=== PATIENT | female | born 1990 | race Caucasian/White ===

== ENCOUNTER 2017-01-16 21:57 | Emergency (ER) | payer OTHER ==
[~2017-01-16] VITALS: Ht 157.5 cm; Wt 79.4 kg
--- NOTE | 2017-01-16 22:25 | PHYS DOC ---
Past Medical History Past Medical History: Anemia, Anxiety, Depression, Gallstones, GERD Past Surgical History: No Surgical History Additional Information: 'vape' Alcohol Use: Rarely Drug Use: None Adult General Chief Complaint Chief Complaint: ABDOMINAL PAIN HPI HPI This is a 26-year-old female who presents with right-sided flank pain that does radiate some under her right upper quadrant for the last several days with some nausea but no vomiting. Patient states she has history of gallstones but has not yet had her gallbladder removed. States she's had little to eat or drink today. She denies any dysuria or hematuria. She denies being . She has an Implanon device. She denies any trauma to her back or any other acute injury. She rates her pain an 8/10 on the pain scale. Review of Systems Review of Systems Constitutional: Denies fever or chills [] Eyes: Denies change in visual acuity, redness, or eye pain [] HENT: Denies nasal congestion or sore throat [] Respiratory: Denies cough or shortness of breath [] Cardiovascular: No additional information not addressed in HPI [] GI: Has abdominal pain, has nausea, denies vomiting, denies bloody stools or diarrhea [] : Denies dysuria or hematuria [] Musculoskeletal: Has back pain, denies joint pain [] Integument: Denies rash or skin lesions [] Neurologic: Denies headache, focal weakness or sensory changes [] Endocrine: Denies polyuria or polydipsia [] Current Medications Current Medications Current Medications Medications (Trade) Dose Ordered Sig/Sukumar Start Time Stop Time Status Last Admin Dose Admin Fentanyl Citrate (Fentanyl 2ml Vial) 50 mcg 1X ONCE 01/16/17 22:30 01/16/17 22:31 DC 01/16/17 22:37 50 MCG Ondansetron HCl 4 mg 4 mg 1X ONCE 01/16/17 22:30 01/16/17 22:31 DC 01/16/17 22:37 4 MG Sodium Chloride (Iv Sodium Chloride 0.9% 1000ml Bag) 1,000 ml @ 1,000 mls/hr 1X ONCE 01/16/17 22:30 01/16/17 23:29 DC 01/16/17 22:37 1,000 MLS/HR Allergies Allergies Allergies Coded Allergies Type Severity Reaction Last Updated Verified No Known Drug Allergies 01/10/15 No Physical Exam Physical Exam Constitutional: Well developed, well nourished, no acute distress, non-toxic appearance. [] HENT: Normocephalic, atraumatic, bilateral external ears normal, oropharynx moist, no oral exudates, nose normal. [] Eyes: PERRLA, EOMI, conjunctiva normal, no discharge. [] Neck: Normal range of motion, no tenderness, supple, no stridor. [] Cardiovascular:Heart rate regular rhythm, no murmur [] Lungs & Thorax: Bilateral breath sounds clear to auscultation [] Abdomen: Bowel sounds normal, soft, RUQ tenderness, no masses, no pulsatile masses. [] Skin: Warm, dry, no erythema, no rash. [] Back: No tenderness, right CVA tenderness. [] Extremities: No tenderness, no cyanosis, no clubbing, ROM intact, no edema. [] Neurologic: Alert and oriented X 3, normal motor function, normal sensory function, no focal deficits noted. [] Psychologic: Affect normal, judgement normal, mood normal. [] Current Patient Data Vital Signs Vital Signs Date Time Temp Pulse Resp B/P Pulse Ox O2 Delivery O2 Flow Rate FiO2 01/16/17 23:30 74 110/65 99 Room Air 01/16/17 22:37 18 01/16/17 22:00 98.1 98.1 Lab Values Laboratory Tests Test 01/16/17 21:27 01/16/17 22:17 01/16/17 22:24 POC Urine HCG, Qualitative Hcg negative (Negative) Urine Collection Type Unknown Urine Color Yellow Urine Clarity Cloudy Urine pH 7.0 Urine Specific [place] 1.010 Urine Protein Negativemg/dL (NEG-TRACE) Urine Glucose (UA) Negativemg/dL (NEG) Urine Ketones (Stick) Negativemg/dL (NEG) Urine Blood Negative (NEG) Urine Nitrite Negative (NEG) Urine Bilirubin Negative (NEG) Urine Urobilinogen Dipstick 0.2mg/dL (0.2 mg/dL) Urine Leukocyte Esterase Negative (NEG) Urine RBC Occ/HPF (0-2) Urine WBC Occ/HPF (0-4) Urine Squamous Epithelial Cells Few/LPF Urine Amorphous Sediment Present/HPF Urine Bacteria Few/HPF (0-FEW) Urine Mucus Slight/LPF White Blood Count 10.7x10^3/uL (4.0-11.0) Red Blood Count 5.20x10^6/uL (3.50-5.40) Hemoglobin 15.0g/dL (12.0-15.5) Hematocrit 44.3% (36.0-47.0) Mean Corpuscular Volume 85fL (79-100) Mean Corpuscular Hemoglobin 29pg (25-35) Mean Corpuscular Hemoglobin Concent 34g/dL (31-37) Red Cell Distribution Width 12.8% (11.5-14.5) Platelet Count 278x10^3/uL (140-400) Neutrophils (%) (Auto) 65% (31-73) Lymphocytes (%) (Auto) 27% (24-48) Monocytes (%) (Auto) 7% (0-9) Eosinophils (%) (Auto) 1% (0-3) Basophils (%) (Auto) 0% (0-3) Neutrophils # (Auto) 6.9x10^3uL (1.8-7.7) Lymphocytes # (Auto) 2.9x10^3/uL (1.0-4.8) Monocytes # (Auto) 0.7x10^3/uL (0.0-1.1) Eosinophils # (Auto) 0.1x10^3/uL (0.0-0.7) Basophils # (Auto) 0.0x10^3/uL (0.0-0.2) Sodium Level 142mmol/L (136-145) Potassium Level 3.6mmol/L (3.5-5.1) Chloride Level 103mmol/L (98-107) Carbon Dioxide Level 29mmol/L (21-32) Anion Gap 10 (6-14) Blood Urea Nitrogen 15mg/dL (7-20) Creatinine 0.7mg/dL (0.6-1.0) Estimated GFR (Cockcroft-Gault) 102.0 BUN/Creatinine Ratio 21 (6-20) H Glucose Level 108mg/dL (70-99) H Calcium Level 10.0mg/dL (8.5-10.1) Total Bilirubin 0.9mg/dL (0.2-1.0) Aspartate Amino Transferase (AST) 17U/L (15-37) Alanine Aminotransferase (ALT) 26U/L (14-59) Alkaline Phosphatase 37U/L (46-116) L Total Protein 8.8g/dL (6.4-8.2) H Albumin 4.1g/dL (3.4-5.0) Albumin/Globulin Ratio 0.9 (1.0-1.7) L Lipase 247U/L (73-393) Laboratory Tests 01/16/17 22:24 Laboratory Tests 01/16/17 22:24 EKG EKG [] Radiology/Procedures Radiology/Procedures Abdominal ultrasound demonstrated the following: Visualized pancreas is unremarkable. Visualized aorta and IVC demonstrate normal caliber. Liver is homogeneous and mildly increased in echogenicity. No focal hepatic masses are identified. Right hepatic lobe measures 14.8 centimeters in length. Gallbladder is contracted. Gallbladder is otherwise unremarkable. Common bile duct has normal caliber at 2 millimeters. Right kidney measures 11.4 centimeters in length. Right kidney is without evidence of obstruction or stone. Course & Med Decision Making Course & Med Decision Making Pertinent Labs and Imaging studies reviewed. (See chart for details) 26-year-old female is having significant right flank pain that does radiate some right upper quadrant had an ultrasound of her gallbladder and continue does not reveal any acute abnormalities. Her bloodwork is also nonrevealing. Her urinalysis was negative for any sign of infection. I will not be treating her today with any antibiotic therapy because her urinalysis is normal. I'll be having her follow closely with primary care doctor and will write her for a course of pain medication and nausea medication as well. She'll follow closely in the next several days resolution of symptoms with strict instruction to return if she has any worsening pain or develops any new symptoms such as fever or pain with urination. Dragon Disclaimer Dragon Disclaimer This electronic medical record was generated, in whole or in part, using a voice recognition dictation system. Departure Departure Impression: Primary Impression: Right flank pain Additional Impression: RUQ pain Disposition: 01 HOME, SELF-CARE Admitting Physician: Other Condition: STABLE Referrals: NO PCP (PCP) Patient Instructions: Abdominal Pain (Nonspecific) Additional Instructions: Please take your pain medication as prescribed. Return to the ER if you develop any worsening of your symptoms. Follow up with your primary doctor in the next 2 -3 days for your symptoms. Scripts Ondansetron Hcl (Zofran)4 Mg Tablet4 Mg PO BID PRN NAUSEA/VOMITING #10 TAB Prov:CHAS NEW DO 01/16/17 Hydrocodone/Apap 5-325 ([place] 5-325 Tablet)1 Each Tablet1 Tab PO PRN Q6HRS PRN PAIN #10 TAB Prov:CHAS NEW DO 01/16/17 Problem Qualifiers CHAS NEW DO Jan 16, 2017 22:25
[2017-01-16] MEDS ORDERED: FENTANYL PF 100 MCG/2 ML VIAL. IV ONE (22:30)
[2017-01-16] MEDS ORDERED: ONDANSETRON PF 4 MG/2 ML VIAL. IV ONE (22:30)
[2017-01-16] MEDS ORDERED: IV NORMAL SALINE 1000ML BAG 1,000 ML IV ONE (22:30)
[2017-01-16 22:32] LABS: BILIRUBIN,URINE NEGATIVE (NEG); GLUCOSE,URINE NEGATIVE (NEG); NITRITE,URINE NEGATIVE (NEG); PROTEIN,URINE NEGATIVE (NEG-TRACE); UROBILINOGEN,URINE 0.2 mg/dL (0.2 mg/dL)
[2017-01-16 22:34] LABS: BASO % 0 % (0-3); EOS % 1 % (0-3); HEMATOCRIT 44.3 % (36.0-47.0); LYMPH # 2.9 x10^3/uL (1.0-4.8); LYMPH % 27 % (24-48); MEAN CORPUSCULAR HEMOGLOBIN 29 pg (25-35); MEAN CORPUSCULAR HGB CONC 34 g/dL (31-37); MEAN CORPUSCULAR VOLUME 85 fL (79-100); MONO % 7 % (0-9); NEUT % 65 % (31-73); PLATELET COUNT 278 x10^3/uL (140-400); RED CELL DISTRIBUTION WIDTH 12.8 % (11.5-14.5); WHITE BLOOD COUNT 10.7 x10^3/uL (4.0-11.0)
[2017-01-16 22:41] LABS: CREATININE 0.7 mg/dL (0.6-1.0); POTASSIUM 3.6 mmol/L (3.5-5.1)
[2017-01-16 22:42] LABS: BACTERIA,URINE FEW /HPF (0-FEW); RBC,URINE OCC /HPF (0-2); SQUAMOUS EPITHELIAL CELL,UR FEW /LPF; WBC,URINE OCC /HPF (0-4)
[2017-01-16 22:47] LABS: ALBUMIN 4.1 g/dL (3.4-5.0); ALBUMIN/GLOBULIN RATIO 0.9 (1.0-1.7); TOTAL BILIRUBIN 0.9 mg/dL (0.2-1.0); TOTAL PROTEIN 8.8 g/dL (6.4-8.2)
--- NOTE | 2017-01-16 23:05 | RAD ---
PROCEDURE Right upper quadrant abdominal ultrasound. HISTORY Flank and right upper quadrant pain. Patient ate at 1800 hours. TECHNIQUE Transabdominal imaging was performed. COMPARISON None. FINDINGS Visualized pancreas is unremarkable. Visualized aorta and IVC demonstrate normal caliber. Liver is homogeneous and mildly increased in echogenicity. No focal hepatic masses are identified. Right hepatic lobe measures 14.8 centimeters in length. Gallbladder is contracted. Gallbladder is otherwise unremarkable. Common bile duct has normal caliber at 2 millimeters. Right kidney measures 11.4 centimeters in length. Right kidney is without evidence of obstruction or stone. IMPRESSION 1. Contracted gallbladder, thought due to lack of NPO status. No evidence of cholelithiasis or cholecystitis. 2. Echogenic liver, compatible with fatty liver disease. Electronically signed by: Matty Omalley MD (Jan 16, 2017 23:04:02)
[2017-01-16 23:30] VITALS: BP 110/65
[2017-01-16] MEDS ORDERED: HYDR-971 PO (23:33)
[2017-01-16] MEDS ORDERED: ONDA4TAB7 PO (23:33)
== END 2017-01-16 23:45 | disposition home or self-care (01) ==
LOC: ER 21:57
DX: R10.11 Right upper quadrant pain (principal); K21.9 Gastro-esophageal reflux disease without esophagitis
CPT/HCPCS: 36415; 76705; 80053; 81001; 81025; 83690; 85027; 96361; 96374; 96375; 99285; J2405; J3010; J7030

== ENCOUNTER 2017-01-19 17:00 | Emergency (ER) | payer OTHER ==
[~2017-01-19] VITALS: Ht 157.5 cm; Wt 79.4 kg
[~2017-01-19 17:00] MED LIST: HYDR-971 PO; ONDA4TAB7 PO
[2017-01-19 18:50] LABS: BILIRUBIN,URINE NEGATIVE (NEG); GLUCOSE,URINE NEGATIVE (NEG); NITRITE,URINE NEGATIVE (NEG); PROTEIN,URINE NEGATIVE (NEG-TRACE)
[2017-01-19 19:00] LABS: BACTERIA,URINE FEW /HPF (0-FEW); RBC,URINE 0 /HPF (0-2); SQUAMOUS EPITHELIAL CELL,UR MOD /LPF; WBC,URINE OCC /HPF (0-4)
--- NOTE | 2017-01-19 19:51 | PHYS DOC ---
Past Medical History Past Medical History: Anemia, Anxiety, Depression, Gallstones, GERD Past Surgical History: No Surgical History Alcohol Use: Rarely Drug Use: None Adult General Chief Complaint Chief Complaint: ABDOMINAL PAIN HPI HPI Patient is a 26 year old female who presents with abdominal pain. Patient reports for the last week she has been having right upper quadrant/right flank pain that is worse with eating. She says that little better while lying down. She denies any fever or dysuria. She was seen in this ED previously for the same ; she is told it is likely her gallbladder, and was discharged with prescription for pain and nausea medication. She does have an appointment with her PCP but this is not until Sunday. She reports she has been having significant pain and didn't feel like she can wait. Review of Systems Review of Systems Constitutional: Denies fever or chills Eyes: Denies change in visual acuity or eye pain HENT: Denies nasal congestion or sore throat Respiratory: Denies cough or shortness of breath Cardiovascular: Denies chest pain GI: RUQ abdominal pain, nausea. Denies vomiting, bloody stools or diarrhea : Denies dysuria or hematuria Musculoskeletal: R flank pain Integument: Denies rash or skin lesions Neurologic: Denies headache, focal weakness or sensory changes Current Medications Current Medications Current Medications Medications (Trade) Dose Ordered Sig/Sukumar Start Time Stop Time Status Last Admin Dose Admin Famotidine (Pepcid) 20 mg 1X ONCE 01/19/17 22:00 01/19/17 22:01 DC 01/19/17 21:58 20 MG Morphine Sulfate 4 mg 1X ONCE 01/19/17 20:00 01/19/17 20:01 DC 01/19/17 20:13 4 MG Ondansetron HCl (Zofran) 4 mg 1X ONCE 01/19/17 22:00 01/19/17 22:01 DC 01/19/17 21:58 4 MG Sodium Chloride (Iv Sodium Chloride 0.9% 1000ml Bag) 1,000 ml @ 1,000 mls/hr Q1H 01/19/17 20:00 01/19/17 20:59 DC 01/19/17 20:13 1,000 MLS/HR Allergies Allergies Allergies Coded Allergies Type Severity Reaction Last Updated Verified No Known Drug Allergies 01/10/15 No Physical Exam Physical Exam Constitutional: Well developed, well nourished, no acute distress, non-toxic appearance HENT: Normocephalic, atraumatic, bilateral external ears normal Eyes: EOMI, conjunctiva normal, no discharge Neck: Normal range of motion, no stridor Cardiovascular: Heart rate normal, regular rhythm, no murmur Lungs & Thorax: Bilateral breath sounds clear to auscultation Abdomen: Bowel sounds normal, soft, non-distended, RUQ TTP without guarding or rebound; negative Weber's sign Skin: Warm, dry, no erythema, no rash Back: Mild R CVA tenderness Extremities: No obvious deformity, no edema Neurologic: Alert and oriented X 3, no gross deficits noted Current Patient Data Vital Signs Vital Signs Date Time Temp Pulse Resp B/P Pulse Ox O2 Delivery O2 Flow Rate FiO2 01/19/17 22:00 72 24 100 01/19/17 21:30 99/72 Room Air 01/19/17 17:10 98.8 98.8 Lab Values Laboratory Tests Test 01/19/17 17:02 01/19/17 18:00 01/19/17 19:56 POC Urine HCG, Qualitative Hcg negative (Negative) Urine Collection Type Unknown Urine Color Yellow Urine Clarity Cloudy Urine pH 7.0 Urine Specific [place] 1.020 Urine Protein Negativemg/dL (NEG-TRACE) Urine Glucose (UA) Negativemg/dL (NEG) Urine Ketones (Stick) Negativemg/dL (NEG) Urine Blood Negative (NEG) Urine Nitrite Negative (NEG) Urine Bilirubin Negative (NEG) Urine Urobilinogen Dipstick 1.0mg/dL (0.2 mg/dL) Urine Leukocyte Esterase Negative (NEG) Urine RBC 0/HPF (0-2) Urine WBC Occ/HPF (0-4) Urine Squamous Epithelial Cells Mod/LPF Urine Bacteria Few/HPF (0-FEW) Urine Mucus Marked/LPF Urine Test Negative (NEG) White Blood Count 8.0x10^3/uL (4.0-11.0) Red Blood Count 4.81x10^6/uL (3.50-5.40) Hemoglobin 14.0g/dL (12.0-15.5) Hematocrit 41.3% (36.0-47.0) Mean Corpuscular Volume 86fL (79-100) Mean Corpuscular Hemoglobin 29pg (25-35) Mean Corpuscular Hemoglobin Concent 34g/dL (31-37) Red Cell Distribution Width 12.8% (11.5-14.5) Platelet Count 261x10^3/uL (140-400) Neutrophils (%) (Auto) 58% (31-73) Lymphocytes (%) (Auto) 35% (24-48) Monocytes (%) (Auto) 6% (0-9) Eosinophils (%) (Auto) 1% (0-3) Basophils (%) (Auto) 0% (0-3) Neutrophils # (Auto) 4.6x10^3uL (1.8-7.7) Lymphocytes # (Auto) 2.8x10^3/uL (1.0-4.8) Monocytes # (Auto) 0.5x10^3/uL (0.0-1.1) Eosinophils # (Auto) 0.1x10^3/uL (0.0-0.7) Basophils # (Auto) 0.0x10^3/uL (0.0-0.2) Sodium Level 143mmol/L (136-145) Potassium Level 3.8mmol/L (3.5-5.1) Chloride Level 105mmol/L (98-107) Carbon Dioxide Level 28mmol/L (21-32) Anion Gap 10 (6-14) Blood Urea Nitrogen 18mg/dL (7-20) Creatinine 0.7mg/dL (0.6-1.0) Estimated GFR (Cockcroft-Gault) 102.0 BUN/Creatinine Ratio 26 (6-20) H Glucose Level 92mg/dL (70-99) Calcium Level 9.2mg/dL (8.5-10.1) Total Bilirubin 0.8mg/dL (0.2-1.0) Aspartate Amino Transferase (AST) 19U/L (15-37) Alanine Aminotransferase (ALT) 23U/L (14-59) Alkaline Phosphatase 33U/L (46-116) L Total Protein 7.9g/dL (6.4-8.2) Albumin 3.8g/dL (3.4-5.0) Albumin/Globulin Ratio 0.9 (1.0-1.7) L Lipase 136U/L (73-393) Laboratory Tests 01/19/17 19:56 Laboratory Tests 01/19/17 19:56 EKG EKG [] Radiology/Procedures Radiology/Procedures RUQ US: IMPRESSION 1. Echogenic liver, compatible with fatty liver disease. 2. No evidence of gallbladder pathology. 3. Right renal cyst. Course & Med Decision Making Course & Med Decision Making Pertinent Labs and Imaging studies reviewed. (See chart for details) Patient is 26-year-old female who presents with right upper quadrant pain. Differential includes gallbladder disease, pancreatitis, PUD, kidney stone. Will obtain repeat right upper quadrant ultrasound since her gallbladder was contracted on the prior exam. Will also check labs, UA, urine . IV fluids, pain medication, nausea medication ordered for relief of symptoms. Imaging results as above; no evidence of gallbladder disease or kidney stone. Blood work unremarkable. UA negative for hematuria (which would be indicative of possible stone) or infection. Discussed results with patient, who is feeling better at this time. We will discharge with prescription for omeprazole, Carafate, instructions for follow-up with GI, return precautions. Patient states she has adequate pain and nausea medication at home from prior prescription. Dragon Disclaimer Dragon Disclaimer This electronic medical record was generated, in whole or in part, using a voice recognition dictation system. Departure Departure Impression: Primary Impression: RUQ pain Disposition: HOME, SELF-CARE Condition: IMPROVED Referrals: NO PCP (PCP) CHAS ROMERO MD Patient Instructions: Abdominal Pain Additional Instructions: Thank you for allowing us to provide care today in the Emergency Department. Take the provided medication as directed. Schedule a follow up appointment with your primary care doctor. Follow up with a heel buffer (GI specialist) using the provided contact information. Return promptly to the Emergency Department if you develop any new or concerning symptoms. Scripts Sucralfate (Carafate)1 Gm Tablet1 Tab PO QID #60 TAB Ref 1 Prov:HUMBERTO ANN MD 01/19/17 Omeprazole 20 Mg Tablet.dr20 Mg PO DAILY #30 TAB Prov:HUMBERTO ANN MD 01/19/17 HUMBERTO ANN MD Jan 19, 2017 19:51
[2017-01-19] MEDS ORDERED: IV NORMAL SALINE 1000ML BAG 1,000 ML IV SCH (20:00)
[2017-01-19] MEDS ORDERED: MORPHINE SULFATE 4 MG/ML DISP.SYRIN. IV ONE (20:00)
[2017-01-19] MEDS ORDERED: ONDANSETRON PF 4 MG/2 ML VIAL. IV ONE ×2 (20:00→22:00)
[2017-01-19 20:24] LABS: NEG OBC UR NEG; POS OBC UR POS
[2017-01-19 20:30] LABS: BASO % 0 % (0-3); EOS % 1 % (0-3); HEMATOCRIT 41.3 % (36.0-47.0); LYMPH # 2.8 x10^3/uL (1.0-4.8); LYMPH % 35 % (24-48); MEAN CORPUSCULAR HEMOGLOBIN 29 pg (25-35); MEAN CORPUSCULAR HGB CONC 34 g/dL (31-37); MEAN CORPUSCULAR VOLUME 86 fL (79-100); MONO % 6 % (0-9); NEUT % 58 % (31-73); PLATELET COUNT 261 x10^3/uL (140-400); RED BLOOD COUNT 4.81 x10^6/uL (3.50-5.40); RED CELL DISTRIBUTION WIDTH 12.8 % (11.5-14.5)
[2017-01-19 20:42] LABS: CALCIUM 9.2 mg/dL (8.5-10.1); CREATININE 0.7 mg/dL (0.6-1.0); POTASSIUM 3.8 mmol/L (3.5-5.1)
[2017-01-19 20:47] LABS: ALBUMIN 3.8 g/dL (3.4-5.0); ALBUMIN/GLOBULIN RATIO 0.9 (1.0-1.7); TOTAL BILIRUBIN 0.8 mg/dL (0.2-1.0); TOTAL PROTEIN 7.9 g/dL (6.4-8.2)
--- NOTE | 2017-01-19 21:01 | RAD ---
PROCEDURE Right upper quadrant abdominal ultrasound. HISTORY Intermittent right upper quadrant pain and nausea for 5 days. TECHNIQUE Transabdominal imaging was performed. COMPARISON Same examination January 16, 2017. FINDINGS Visualized pancreas is unremarkable. Visualized aorta and IVC demonstrate normal caliber. Liver is increased in echogenicity. No focal hepatic masses are identified. Right hepatic lobe measures 14.9 centimeters. Gallbladder is without stone or inflammation. Common bile duct has normal caliber at 4 millimeters. Right kidney measures 11.9 centimeters in length. Right kidney is without evidence of obstruction or stone. Right kidney demonstrates small cyst measuring 1.2 centimeters. IMPRESSION 1. Echogenic liver, compatible with fatty liver disease. 2. No evidence of gallbladder pathology. 3. Right renal cyst. Electronically signed by: Matty Omalley MD (Jan 19, 2017 21:00:23)
[2017-01-19 21:30] VITALS: BP 99/72
[2017-01-19] MEDS ORDERED: OMEP20TA PO (21:48)
[2017-01-19] MEDS ORDERED: SUCR1TAB29 PO (21:48)
[2017-01-19] MEDS ORDERED: FAMOTIDINE 20 MG/2 ML VIAL IVP ONE (22:00)
== END 2017-01-19 22:05 | disposition home or self-care (01) ==
LOC: ER 17:00
DX: R10.11 Right upper quadrant pain (principal); F41.9 Anxiety disorder, unspecified; F32.9 Major depressive disorder, single episode, unspecified; K21.9 Gastro-esophageal reflux disease without esophagitis
CPT/HCPCS: 36415; 76705; 80053; 81001; 81025; 83690; 84703; 85027; 96361; 96374; 96375; 96376; 99285; J2270; J2405; J7030; S0028

== ENCOUNTER 2017-07-04 11:56 | Emergency (ER) | payer OTHER ==
[~2017-07-04] VITALS: Ht 157.5 cm; Wt 74.8 kg
[~2017-07-04 11:56] MED LIST changes: +OMEP20TA8 PO; +SUCR1TAB35 PO
[2017-07-04 12:18] LABS: BILIRUBIN,URINE NEGATIVE (NEG); GLUCOSE,URINE NEGATIVE (NEG); NITRITE,URINE NEGATIVE (NEG); PH,URINE 5.5; PROTEIN,URINE NEGATIVE (NEG-TRACE); UROBILINOGEN,URINE 0.2 mg/dL (0.2 mg/dL)
--- NOTE | 2017-07-04 12:30 | PHYS DOC ---
Past Medical History Past Medical History: Anemia, Anxiety, Depression, Gallstones, GERD Additional Past Medical Histor: gastric ulcers, headaches Past Surgical History: No Surgical History Alcohol Use: Rarely Drug Use: None Adult General Chief Complaint Chief Complaint: ABDOMINAL PAIN HPI HPI Patient is a 27 year old female presents with complaints of abdominal pain for 2 days and also vaginal bleeding that has been going on for approximately 4 weeks. Patient denies any fevers, vomiting, diarrhea, rashes, trauma. Patient describes the abdominal pain is mild and generalized. Patient has a implant for anti-conception that is now 4 years old and the last time of the devices for 3 years. Review of Systems Review of Systems Constitutional: Denies fever or chills [] HENT: Denies nasal congestion or sore throat [] Respiratory: Denies cough or shortness of breath [] Cardiovascular: No chest pain GI: Yes abdominal pain. Denies Nausea, vomiting, bloody stools or diarrhea [] : Denies dysuria or hematuria. Yesterday vaginal bleeding, no to vaginal discharge Musculoskeletal: Denies back pain or joint pain [] Integument: Denies rash or skin lesions [] Neurologic: Denies headache, focal weakness or sensory changes [] Endocrine: Denies polyuria or polydipsia [] Allergies Allergies Allergies Coded Allergies Type Severity Reaction Last Updated Verified No Known Drug Allergies 01/10/15 No Physical Exam Physical Exam Constitutional: Well developed, well nourished, no acute distress, non-toxic appearance. [] HENT: Normocephalic, atraumatic, nose normal. [] Eyes: PERRLA, EOMI, conjunctiva normal, no discharge. [] Neck: Normal range of motion, no tenderness, supple, no stridor. [] Cardiovascular:Heart rate regular rhythm, no murmur [] Lungs & Thorax: Bilateral breath sounds clear to auscultation, no tachypnea Abdomen: Bowel sounds normal, soft, very mild tenderness in the upper abdomen without guarding or rebound,, no masses, no pulsatile masses. [] Skin: Warm, dry, no erythema, no rash. [] Back: No tenderness, no CVA tenderness. [] Extremities: No tenderness, no cyanosis, no clubbing, ROM intact, no edema. [] Neurologic: Alert and oriented X 3, normal motor function, no focal deficits noted. [] Psychologic: Affect normal, judgement normal, mood normal. [] Current Patient Data Vital Signs Vital Signs Date Time Temp Pulse Resp B/P (MAP) Pulse Ox O2 Delivery O2 Flow Rate FiO2 07/04/17 12:19 98.6 85 16 130/70 (90) 96 Room Air 98.6 Lab Values Laboratory Tests Test 07/04/17 11:17 07/04/17 12:05 07/04/17 12:32 POC Urine HCG, Qualitative Hcg negative (Negative) Urine Collection Type Unknown Urine Color Yellow Urine Clarity Clear Urine pH 5.5 Urine Specific [place] 1.025 Urine Protein Negative mg/dL (NEG-TRACE) Urine Glucose (UA) Negative mg/dL (NEG) Urine Ketones (Stick) Negative mg/dL (NEG) Urine Blood Large (NEG) Urine Nitrite Negative (NEG) Urine Bilirubin Negative (NEG) Urine Urobilinogen Dipstick 0.2 mg/dL (0.2 mg/dL) Urine Leukocyte Esterase Negative (NEG) Urine RBC >40 /HPF (0-2) Urine WBC 1-4 /HPF (0-4) Urine Squamous Epithelial Cells Mod /LPF Urine Bacteria Few /HPF (0-FEW) Urine Mucus Marked /LPF White Blood Count 7.8 x10^3/uL (4.0-11.0) Red Blood Count 4.85 x10^6/uL (3.50-5.40) Hemoglobin 14.4 g/dL (12.0-15.5) Hematocrit 41.7 % (36.0-47.0) Mean Corpuscular Volume 86 fL (79-100) Mean Corpuscular Hemoglobin 30 pg (25-35) Mean Corpuscular Hemoglobin Concent 35 g/dL (31-37) Red Cell Distribution Width 12.9 % (11.5-14.5) Platelet Count 245 x10^3/uL (140-400) Neutrophils (%) (Auto) 72 % (31-73) Lymphocytes (%) (Auto) 22 % (24-48) L Monocytes (%) (Auto) 6 % (0-9) Eosinophils (%) (Auto) 0 % (0-3) Basophils (%) (Auto) 1 % (0-3) Neutrophils # (Auto) 5.6 x10^3uL (1.8-7.7) Lymphocytes # (Auto) 1.7 x10^3/uL (1.0-4.8) Monocytes # (Auto) 0.4 x10^3/uL (0.0-1.1) Eosinophils # (Auto) 0.0 x10^3/uL (0.0-0.7) Basophils # (Auto) 0.0 x10^3/uL (0.0-0.2) Sodium Level 139 mmol/L (136-145) Potassium Level 3.8 mmol/L (3.5-5.1) Chloride Level 102 mmol/L (98-107) Carbon Dioxide Level 24 mmol/L (21-32) Anion Gap 13 (6-14) Blood Urea Nitrogen 14 mg/dL (7-20) Creatinine 0.6 mg/dL (0.6-1.0) Estimated GFR (Cockcroft-Gault) 120.8 BUN/Creatinine Ratio 23 (6-20) H Glucose Level 99 mg/dL (70-99) Calcium Level 9.4 mg/dL (8.5-10.1) Total Bilirubin 0.9 mg/dL (0.2-1.0) Aspartate Amino Transferase (AST) 17 U/L (15-37) Alanine Aminotransferase (ALT) 21 U/L (14-59) Alkaline Phosphatase 34 U/L (46-116) L Total Protein 8.2 g/dL (6.4-8.2) Albumin 4.3 g/dL (3.4-5.0) Albumin/Globulin Ratio 1.1 (1.0-1.7) Laboratory Tests 07/04/17 12:32 Laboratory Tests 07/04/17 12:32 EKG EKG [] Radiology/Procedures Radiology/Procedures [] Course & Med Decision Making Course & Med Decision Making Pertinent Labs and Imaging studies reviewed. (See chart for details) and discussed with patient. Patient in no distress, labs and results discussed with the patient progress to follow up as directed. I believed that there abnormal vaginal bleeding the patient is experiencing is secondary to her on the concept of device no longer producing any hormone. Patient is waiting to have an implant put in. [] Dragon Disclaimer Dragon Disclaimer This electronic medical record was generated, in whole or in part, using a voice recognition dictation system. Departure Departure Impression: Primary Impression: Abdominal pain Additional Impression: Dysfunctional uterine bleeding Disposition: HOME, SELF-CARE Referrals: NO PCP (PCP) you told us you have a pcp to follow up with, please do so in 1 day for recheck. Also discuss possible need for referral to [facility]. Patient Instructions: Abdominal Pain (Nonspecific), Uterine Bleeding, Dysfunctional Scripts Sucralfate (CARAFATE) 1 Gm/10 Ml Oral.susp 10 ML PO BID for 5 Days, #120 ML 1 Refill Prov: Alisia BLACK MD 07/04/17 Hyoscyamine Sulfate (LEVSIN) 0.125 Mg Tablet 1 TAB PO TID, #14 TAB 1 Refill Prov: Alisia BLACK MD 07/04/17 Problem Qualifiers Alisia BLACK MD Jul 04, 2017 12:30
[2017-07-04 12:31] LABS: RBC,URINE >40 /HPF (0-2)
[2017-07-04 12:32] LABS: BACTERIA,URINE FEW /HPF (0-FEW); SQUAMOUS EPITHELIAL CELL,UR MOD /LPF
[2017-07-04 12:41] LABS: BASO % 1 % (0-3); EOS % 0 % (0-3); HEMATOCRIT 41.7 % (36.0-47.0); HEMOGLOBIN 14.4 g/dL (12.0-15.5); LYMPH # 1.7 x10^3/uL (1.0-4.8); LYMPH % 22 % (24-48); MEAN CORPUSCULAR HEMOGLOBIN 30 pg (25-35); MEAN CORPUSCULAR HGB CONC 35 g/dL (31-37); MEAN CORPUSCULAR VOLUME 86 fL (79-100); MONO % 6 % (0-9); NEUT % 72 % (31-73); PLATELET COUNT 245 x10^3/uL (140-400); RED BLOOD COUNT 4.85 x10^6/uL (3.50-5.40); RED CELL DISTRIBUTION WIDTH 12.9 % (11.5-14.5); WHITE BLOOD COUNT 7.8 x10^3/uL (4.0-11.0)
[2017-07-04 12:50] LABS: CALCIUM 9.4 mg/dL (8.5-10.1); CREATININE 0.6 mg/dL (0.6-1.0); GFR 120.8; POTASSIUM 3.8 mmol/L (3.5-5.1)
[2017-07-04 12:56] LABS: ALBUMIN 4.3 g/dL (3.4-5.0); ALBUMIN/GLOBULIN RATIO 1.1 (1.0-1.7); TOTAL BILIRUBIN 0.9 mg/dL (0.2-1.0); TOTAL PROTEIN 8.2 g/dL (6.4-8.2)
[2017-07-04] MEDS ORDERED: SUCR1ORA5 PO (13:47)
[2017-07-04] MEDS ORDERED: HYOS0.1264 PO (13:47)
--- NOTE | 2017-07-04 13:58 | RAD ---
Exam performed: 2 views of the chest. Indication: chest pain Date of Service:07/04/2017 3:39 PM . Comparison : None available. Findings: PA and lateral radiographs of the chest reveal a normal cardiomediastinal contour. The lungs are clear. No pleural fluid is seen. The visualized osseous structures are unremarkable. Impression: Radiographically normal chest.
[2017-07-04 14:13] VITALS: BP 121/72
== END 2017-07-04 14:15 | disposition home or self-care (01) ==
LOC: ER 11:56
DX: R10.84 Generalized abdominal pain (principal); N93.8 Other specified abnormal uterine and vaginal bleeding; F32.9 Major depressive disorder, single episode, unspecified; F41.9 Anxiety disorder, unspecified; K21.9 Gastro-esophageal reflux disease without esophagitis; Z87.19 Personal history of other diseases of the digestive system
CPT/HCPCS: 36415; 71020; 80053; 81001; 81025; 85025; 99285-25

== ENCOUNTER 2019-09-28 20:31 | Emergency (ER) | payer SELFPAY ==
[~2019-09-28] VITALS: Ht 157.5 cm; Wt 75.3 kg
[~2019-09-28 20:31] MED LIST changes: +HYDR-3164 PO; -HYDR-971 PO; +HYOS0.1264 PO; +SUCR1ORA5 PO
[2019-09-28 20:50] VITALS: BP 139/76
--- NOTE | 2019-09-28 21:10 | PHYS DOC ---
Past Medical History Past Medical History: Abscess, Anemia, Anxiety, Depression, Gallstones, GERD, P.U.D. Additional Past Medical Histor: PTSD (CAMILLA VELAZQUEZ APRN) Past Surgical History: No Surgical History (CAMILLA VELAZQUEZ APRN) Alcohol Use: Rarely Drug Use: None (CAMILLA VELAZQUEZ APRN) Adult General Chief Complaint Chief Complaint: SKIN PROBLEM HPI HPI Patient is a 29 year old [female] who presents with [abscess to left buttock. Patient reports she has had this lesion for the past few days, reports he doesn't become increasingly more tender and painful. Reports he has felt warm. States she herself has not had a fever. States she did have some drainage from a couple days ago, has been trying different topical treatments including hydroperoxide, Neosporin, but has continued to have discomfort and swelling noted to the. States she initially thought was an ingrown hair, but has not been sure. Denies having any these in the past.] (CAMILLA VELAZQUEZ APRN) Review of Systems Review of Systems Constitutional: Denies fever or chills [] Respiratory: Denies cough or shortness of breath [] Cardiovascular: No additional information not addressed in HPI [] GI: Denies abdominal pain, nausea, vomiting, bloody stools or diarrhea [] : Denies dysuria or hematuria [] Musculoskeletal: Denies back pain or joint pain [] Integument: Denies rash reports skin lesion to right buttock[] Neurologic: Denies headache, focal weakness or sensory changes [] Endocrine: Denies polyuria or polydipsia [] All other systems were reviewed and found to be within normal limits, except as documented in this note. (CAMILLA VELAZQUEZ APRN) Current Medications Current Medications Current Medications Medications (Trade) Dose Ordered Sig/Sukumar Start Time Stop Time Status Last Admin Dose Admin Acetaminophen/ Hydrocodone Bitart (Lortab 5/325) 1 tab 1X ONCE 09/28/19 22:00 09/28/19 22:01 DC 09/28/19 22:06 1 TAB (HUONG NEVAREZ MD) Allergies Allergies Allergies Coded Allergies Type Severity Reaction Last Updated Verified No Known Drug Allergies 01/10/15 No (HUONG NEVAREZ MD) Physical Exam Physical Exam Constitutional: Well developed, well nourished, no acute distress, non-toxic appearance. [] HENT: Normocephalic, atraumatic, bilateral external ears normal, oropharynx moist, no oral exudates, nose normal. [] Eyes: PERRLA, EOMI, conjunctiva normal, no discharge. [] Neck: Normal range of motion, no tenderness, supple, no stridor. [] Cardiovascular:Heart rate regular rhythm, no murmur [] Lungs & Thorax: Bilateral breath sounds clear to auscultation [] Skin: Warm, dry, no erythema, no rash. Right buttock lateral to midline approximately 2 cm round, firm, approx 1 cm depth erythematous, warm area. No active bleeding. [] Back: No tenderness, no CVA tenderness. [] Extremities: No tenderness, no cyanosis, no clubbing, ROM intact, no edema. [] Neurologic: Alert and oriented X 3, normal motor function, normal sensory function, no focal deficits noted. [] Psychologic: Affect normal, judgement normal, mood normal. [] (CAMILLA VELAZQUEZ APRN) Current Patient Data Vital Signs Vital Signs Date Time Temp Pulse Resp B/P (MAP) Pulse Ox O2 Delivery O2 Flow Rate FiO2 09/28/19 22:06 20 100 Room Air 09/28/19 20:50 99.0 84 139/76 (97) 99.0 (HUONG NEVAREZ MD) EKG EKG [] (CAMILLA VELAZQUEZ APRN) Radiology/Procedures Radiology/Procedures [] (CAMILLA VELAZQUEZ APRN) Course & Med Decision Making Course & Med Decision Making Pertinent Labs and Imaging studies reviewed. (See chart for details) [Discussed option for I&D vs antibiotics due to abscess being firm. Patient willing to have abscess lanced to see if any drainage noted. Discussed ] (CAMILLA VELAZQUEZ APRN) Dragon Disclaimer Dragon Disclaimer This electronic medical record was generated, in whole or in part, using a voice recognition dictation system. (CAMILLA VELAZQUEZ APRN) Incision and Drainage Indication: abscess Procedure: The patient was positioned appropriately. L. An incision was then made over the apex of the lesion and a small amount of purulent drainage was expressed. The incision was covered with a gauze dressing and patient instructed on care of abscess. The patient tolerated the procedure well. Complications: none. (CAMILLA VELAZQUEZ APRN) Departure Departure Impression: Primary Impression: Abscess and cellulitis of gluteal region Disposition: HOME, SELF-CARE Condition: STABLE Referrals: NO PCP (PCP) Patient Instructions: Abscess Additional Instructions: As we discussed continue to take Tylenol or ibuprofen for the discomfort. Take the antibiotic as prescribed until it is gone for the entire duration. If the abscess does not improve in the next 3-4 days, return or follow with primary care. Keep the area clean and dry tonight, replace the gauze before you go to bed tonight. Scripts Sulfamethoxazole/Trimethoprim (BACTRIM DS TABLET) 1 Each Tablet 1 EACH PO BID for 10 Days, #20 TAB Prov: CAMILLA VELAZQUEZ APRN 09/28/19 CAMILLA VELAZQUEZ APRN Sep 28, 2019 21:10 HUONG NEVAREZ MD Sep 29, 2019 02:01
[2019-09-28] MEDS ORDERED: SULF1TAB24 PO (21:35)
[2019-09-28] MEDS ORDERED: HYDROcodone/APAP 5/325MG 1 TAB TABLET PO ONE (22:00)
== END 2019-09-28 22:30 | disposition home or self-care (01) ==
LOC: ER 20:31
DX: L02.31 Cutaneous abscess of buttock (principal); L03.317 Cellulitis of buttock; F41.9 Anxiety disorder, unspecified; F32.9 Major depressive disorder, single episode, unspecified; K21.9 Gastro-esophageal reflux disease without esophagitis; K80.80 Other cholelithiasis without obstruction; K27.7 Chronic peptic ulcer, site unspecified, without hemorrhage or perforation
CPT/HCPCS: 10060; 99283